=== PATIENT | female | born 1980 | race Caucasian/White ===

== ENCOUNTER → 2020-12-15 15:50 | Outpatient (BNVA) | payer BC, SELFPAY | PROVIDERS: Visit Provider Nurse Practitioner Women's Health | DX: Z01.419 Encounter for gynecological examination (general) (routine) without abnormal findings (principal) | CPT/HCPCS: 88175 ==

== ENCOUNTER → 2021-01-13 16:05 | Outpatient (BNVA) | payer BC, SELFPAY | PROVIDERS: Visit Provider Obstetrics & Gynecology | DX: Z30.2 Encounter for sterilization (principal); Z20.822 Contact with and (suspected) exposure to COVID-19 | CPT/HCPCS: 87635 ==

== ENCOUNTER 2021-01-18 08:41 | Day surgery (SDC) | payer BC, SELFPAY ==
[2021-01-14 10:27] VITALS: BMI 28.2
[2021-01-18] VITALS (8 sets, daily range): BP systolic 114–155; BP diastolic 88–100; PULSE 73–110; RESP 13–20; TEMP 36.6–36.7; O2SAT 96–100
[2021-01-18 09:01] LABS: OR HCG Qualitative Urine Negative (Negative)
--- NOTE | 2021-01-18 09:07 | ANES.PREANE2 ---
Pre-Anesthetic Assessment Pre-Anesthetic Assessment: Height/Weight: Height 1.68 m Weight 79.379 kg Preop Diagnosis: desires permanent sterilization Proposed Procedure: Operation Date: 01/18/21 10:20 Proposed Procedures p Laparoscopic bilateral Salpingectomy 72027 Z30.2(Bilateral) - Elidia Koch MD Was Beta Ortiz taken within 24 hours: N/A Was Clonidine taken within 24 hours: N/A Social: Social History: No alcohol and No tobacco Exam: Pre-Anes Outpt Exam: alert, oriented x 3, clear to auscultation bilaterally and regular rate & rhythm Airway: Submandibular: WNL Cervical ROM: WNL MP: 2 History/ROS: No significant history except as noted Pulmonary: Pulmonary: None reported CV/HEM: CV/HEM: None reported : : None reported Hepatic: Hepatic: None reported GI: GI: None reported Metabolic: Metabolic: None reported Musc/skel: Musc/skel: None reported Neuropsych: Neuropsych: None reported Anesthetic Plan: ASA status: 2 PFSH Anesthesia PFSH: Medical History No pertinent past medical history neghx: htn,dm,thyroid,dvt/pe PCP: None Surgical History No pertinent past surgical history Family History Family/Other Breast cancer Maternal Aunt--dx age 40 Ovarian cancer Maternal Aunt--dx age 71 Maternal Aunt--dx age 72 Brother Heart disease Denies family history of Colon cancer Diabetes Hypercholesteremia Hypertension Uterine cancer Thyroid disease Stroke Female Reproductive History: Date of last menstrual period: 12/31/20 Data Anesthesia Other Labs: Laboratory Results - last 48 hr 01/18/21 08:54 Urine HCG, Qual Negative Cardiac Studies: No Data to Display
[2021-01-18] MEDS: sodium chloride 0.9% 1,000 ML 30 ML IV (09:20)
[2021-01-18] MEDS: acetaminophen 1,000 MG/100 ML PIGGYBACK 400 MG IV (09:20)
[2021-01-18] MEDS: gabapentin 300 mg Capsule PO (09:26)
[2021-01-18] MEDS: CELEcoxib 200 mg Capsule 400 MG PO (09:26)
[2021-01-18] MEDS: ketorolac 30 mg/mL INJ IVP (09:27)
[2021-01-18 09:54] LABS: Basophils % 0.5 %; Eosinophils % 0.4 %; Hemoglobin 13.7 g/dL (11.5-15.3); Lymphocytes # 1.3 10^3/uL (0.8-4.8); Lymphocytes % 18.1 %; Mean Corpuscular HGB Conc 34.3 g/dL (30.0-36.0); Mean Corpuscular Volume 99.3 fL (81-99); Monocytes # 0.6 10^3/uL (0.2-0.9); Monocytes % 7.8 %; Neutrophils # 5.34 10^3/uL (1.8-7.7); Neutrophils % 72.9 %; Nucleated Red Blood Cells % 0 %; Platelet Count 220 10^3/cmm (130-400); Red Blood Count 4.03 10^6/uL (4.1-5.3); Red Cell Distribution Width 12.1 % (12.1-15.1); White Blood Count 7.3 10^3/uL (4.0-10.0)
[2021-01-18 10:03] LABS: Anion Gap 16.7 (5-19); Blood Urea Nitrogen 6 mg/dL (6-20); Calcium 9.2 mg/dL (8.5-10.5); Carbon Dioxide 22 mmol/L (22-29); Chloride 103 mmol/L (98-107); Glomerular Filtration Rate 80.3 mL/min (90-130); Glucose 114 mg/dL (65-115); Osmolality Calculated 284 mOsm/kg (285-295); Potassium 3.7 mmol/L (3.5-5.1); Sodium 138 mmol/L (136-145)
--- NOTE | 2021-01-18 10:45 | W.PM.OPSUD ---
Surgery/Procedure H&P Update DATE OF PROCEDURE: January 18, 2021 DATE H&P PERFORMED: 01/13/21 H&P UPDATE INFORMATION: I have reviewed H&P completed within last 30 days, I have examined patient prior to procedure and No changes to prior documentation PREOP DIAGNOSIS: desires permanent sterilization PLANNED PROCEDURE: Operation Date: 01/18/21 10:20 Proposed Procedures p Laparoscopic bilateral Salpingectomy 41265 Z30.2(Bilateral) - Elidia Koch MD
--- NOTE | 2021-01-18 11:54 | PM.OP ---
Operative Report Date of procedure: January 18, 2021 Pre-op Diagnosis: desires permanent sterilization Post-op diagnosis: same Post-op Findings: normal appearing uterus, tubes and ovaries Procedure Done: laparoscopic salpingectomy Specimens removed/disposition: bilateral fallopian tubes sent to pathology Surgeon: Elidia Koch Anesthesia: General Estimated blood loss (mL): 20 IV fluids (mL): 900 Urine output (mL): 300 Complications: none Condition: stable Disposition: PACU Brief History: The patient presented to the office with a request for tubal sterilization Procedure: The patient was taken to the operating room where general anesthesia was administered and found to be adequate. She was prepped and draped in the normal sterile fashion in the dorsal lithotomy position in [facility]. A Regan catheter was placed. A weighted speculum was placed into the vagina and the anterior lip of the cervix grasped with a single-tooth tenaculum. A [employer] uterine manipulator was placed. The gloves were changed and attention was turned to the laparoscopic portion of the case. A 5 mm infraumbilical incision was made. The 5 mm trocar was placed using the easy view trocar. Intra-abdominal placement was confirmed and CO2 gas was used to insufflate the abdomen. Using direct visualization and illumination of the abdominal wall two 5 mm incisions were made low and lateral. One on the left and one on the right. The 5mm trochars were yhen placed under direct visualization. Using the uterine manipulator and the grasper the fallopian tubes were identified and grasped and using the laparoscopic cautery, the fallopian tube was clamped cauterized and cut. First on the right, then on the left. There was excellent hemostasis post removal of the bilateral tubes. Pictures were taken to removal. All instruments were removed. The abdomen was desufflated. The incisions were closed with 2-0 Vicryl. The patient tolerated the procedure well. Sponge lap and needle counts were correct x3. She was taken to the recovery room in stable condition.
--- NOTE | 2021-01-18 12:06 | PM.DCS ---
Discharge Providers Date of Discharge: January 18, 2021 Attending Provider at Discharge: Elidia Koch MD Diagnoses at Discharge Discharge Diagnosis (1) Postoperative state: Status: Acute Reason for Visit Reason for Visit: lap bilateral salpinectomy Hospital Course Hospital Course The patient was admitted for surgery. She did well postoperatively and was ready for discharge. Discharge Data Data Completed and Pending: Pending at discharge Category Date Time Status ES surgery / GI i mages Routine Exams 01/18/21 10:32 Ordered Urine Culture [facility] 01/18/21 08:06 Received Labs from last 24 hours 01/18/21 01/18/21 01/18/21 09:17 09:17 08:54 WBC 7.3 RBC 4.03 L Hgb 13.7 Hct 40.0 MCV 99.3 H MCH 34.0 MCHC 34.3 RDW 12.1 Plt Count 220 MPV 10.0 Neut % (Auto) 72.9 Lymph % (Auto) 18.1 Guthrie % (Auto) 7.8 Eos % (Auto) 0.4 Baso % (Auto) 0.5 Neut # (Auto) 5.34 Lymph # (Auto) 1.3 Guthrie # (Auto) 0.6 Eos # (Auto) 0.0 Baso # (Auto) 0.0 Nucleated RBC % (a uto) 0 Nucleated RBCs # 0.0 Sodium 138 Potassium 3.7 Chloride 103 Carbon Dioxide 22 Anion Gap 16.7 BUN 6 Creatinine 0.8 GFR Calculation 80.3 L Glucose 114 Calculated Osmolal ity 284 L Calcium 9.2 Urine HCG, Qual Negative Vitals: Last Vital Signs Temp 97.9 F 01/18/21 09:02 Pulse 99 01/18/21 09:02 Resp 18 01/18/21 09:02 BP 149/100 01/18/21 09:02 Pulse Ox 96 01/18/21 09:02 Discharge Plan Discharge Patient Disposition: Home Condition: Stable Prescriptions: New hydrocodone-acetaminophen 5-325 mg tablet 1 tab PO Q4H PRN (Reason: pain) Qty: 30 RF: 0 Discharge Orders: Discharge Order (Routine); Ordered 01/18/21 Ordered By: Elidia Koch Discharge Attestations Time Spent in Discharge Care*: less than 30 min Quality Metrics Clinical Quality Measures During this hospital stay, did patient experience: None Coding Level of Care Code Acute Chg FW DC note Diagnoses Postoperative state Z98.890
[2021-01-18] MEDS: HYDROcodone-acetaminophen 5-325 mg Tablet 1 TAB PO (12:46)
--- NOTE | 2021-01-18 13:48 | ANE.PACU2 ---
Inpatient post-anesthesia follow up: Airway intact: Yes Vital signs: Temperature 97.8 F Pulse Rate 73 Respiratory Rate 18 Blood Pressure 155/99 Pulse Oximetry 98 Oxygen Delivery Me thod Room Air Oxygen Flow Rate 6 Fraction of Inspir ed Oxygen Hydration adequate: Yes Nausea and vomiting: No Pain level: 4 Mental status: Baseline
== END 2021-01-18 13:17 | disposition home or self-care (01) ==
PROVIDERS: Visit Provider Obstetrics & Gynecology
PROC: (CPT 58661; principal; 2021-01-18 10:10)
DX: Z30.2 Encounter for sterilization (principal)
CPT/HCPCS: 58661; 36415; 80048; 81025; 84703; 85025; 87086; 88302; 96365; 96374; J0690; J1100; J1885; J2405; J2704; J2710; J3010; J3490; J7030

== ENCOUNTER 2022-07-19 11:40 | Outpatient (CLI) | payer BC, SELFPAY ==
--- NOTE | 2022-07-19 11:53 | MM_ITS ---
WS: [id number] Bilateral screening 3D tomosynthesis digital mammogram, 07/19/2022 Clinical Data: Z12.39 - Encounter for other screening for malignant neop... Comparison: None. Findings: The breast parenchymal pattern shows heterogeneous density. No spiculated masses or clustered calcifi cations are seen. There are no secondary signs of carcinoma. MM/[place] [id number] Impression: 1. Negative bilateral mammogram with no prior exam for review. 2. Recommend annual screening mammograms. BIRADS: 1-Negative FOLLOW UP: 1 Year Follow-up The CAD package checker was used.
== END 2022-07-19 11:41 | disposition home or self-care (01) ==
LOC: RAD 11:41
PROVIDERS: Visit Provider Nurse Practitioner Women's Health
DX: Z12.31 Encounter for screening mammogram for malignant neoplasm of breast (principal)
CPT/HCPCS: 77063; 77067

== ENCOUNTER → 2023-04-16 11:39 | Outpatient (BNVA) | payer BC, SELFPAY | PROVIDERS: Visit Provider Family Medicine | DX: Z68.29 Body mass index [BMI] 29.0-29.9, adult (principal) | CPT/HCPCS: 80053; 80061; 84439; 84443; 85025 ==

== ENCOUNTER 2023-07-23 14:44 | Outpatient (CLI) | payer BC, SELFPAY ==
--- NOTE | 2023-07-23 14:47 | MM_ITS ---
WS: [id number] BILATERAL 3D TOMOSYNTHESIS DIGITAL SCREENING MAMMOGRAPHY WITH CAD CLINICAL INFORMATION: Z12.31 - Encounter for screening mammogram for malignant ... HISTORY: Screening mammogram. No current complaints. COMPARISON: 07/19/2022 TECHNIQUE: Bilateral CC and MLO views. FINDINGS: The breasts are composed of heterogeneous fibroglandular density tissue, which can limit the detectio n of small underlying mass lesions. No suspicious mass, asymmetry, calcifications, or architectural d istortion. No evidence of malignancy. IMPRESSION: MM/[id number] BI-RADS: 1-Negative FOLLOW UP: 1 Year Follow-up Recommend return to annual screening mammography.
== END 2023-07-23 14:45 | disposition home or self-care (01) ==
LOC: RAD 14:44
PROVIDERS: Visit Provider Nurse Practitioner Women's Health
DX: Z12.31 Encounter for screening mammogram for malignant neoplasm of breast (principal)
CPT/HCPCS: 77063; 77067